=== PATIENT | female | born 1960 | race Caucasian/White ===

== ENCOUNTER 2018-12-16 08:25 | Emergency (ER) | payer OTHER ==
[~2018-12-16] VITALS: Ht 165.1 cm; Wt 104.3 kg
[2018-12-16] MEDS ORDERED: TRULICITY1.5 MG/0.5 SUBQ (08:30)
[2018-12-16] MEDS ORDERED: ZOLOFT25 MG PO (08:31)
[2018-12-16] MEDS ORDERED: FARXIGA5 MG PO (08:31)
[2018-12-16] MEDS ORDERED: NORVASC10 MG PO (08:31)
[2018-12-16] MEDS ORDERED: WELLBUTRIN XL300 MG PO (08:31)
[2018-12-16] MEDS ORDERED: ULTRAM 50MG TAB50 MG PO (10:10)
[2018-12-16 10:49] VITALS: BP 138/69
== END 2018-12-16 10:57 | disposition home or self-care (01) ==
LOC: M.ERS 08:25
DX: S82.842A Displaced bimalleolar fracture of left lower leg, initial encounter for closed fracture (principal); Z88.0 Allergy status to penicillin; Z88.2 Allergy status to sulfonamides; Z88.5 Allergy status to narcotic agent; W01.0XXA Fall on same level from slipping, tripping and stumbling without subsequent striking against object, initial encounter; Y93.89 Activity, other specified; Y92.098 Other place in other non-institutional residence as the place of occurrence of the external cause; Y99.8 Other external cause status